=== PATIENT | male | born 1935 | race African-American/Black ===

== ENCOUNTER → 2019-04-24 | Outpatient (CLI) | payer MEDICARE, OTHER ==
[~2019-04-24] MED LIST: AMINOCAPROIC ACID PO; ATEN50TA PO; HYDR12.54 PO; POTA-9 PO; SOLI5TAB PO; TAMS-11 PO
[2019-04-24 10:52] LABS: BASOPHILS % 0.7 % (0.0-2.0); EOSINOPHILS % 4.5 % (0.0-5.0); HEMOGLOBIN. 11.6 g/dL (14.0-18.0); LYMPHOCYTES % 32.4 % (20.0-50.0); MEAN CORPUSCULAR HEMOGLOBIN 27.9 pg (28.0-32.0); MEAN CORPUSCULAR VOLUME 84.4 fL (80.0-94.0); MEAN PLATELET VOLUME 10.2 fl (7.4-10.4); MONOCYTES % 9.2 % (2.0-8.0); NEUTROPHILS % 53.2 % (40.0-76.0); PLATELET 157 x1000/uL (130-400); RED BLOOD CELL COUNT 4.15 mill/uL (4.7-6.1); RED CELL DISTRIBUTION WIDTH 15.5 % (11.6-14.6)
[2019-04-24 11:00] LABS: PARTIAL THROMBOPLASTIN TIME 29.2 sec (23.4-31.0); PROTHROMBIN TIME 10.6 sec (9.6-11.0)
== END | disposition home or self-care (01) ==
LOC: LAB 10:22
PROVIDERS: ATTEND Urology
DX: N13.30 Unspecified hydronephrosis (principal); I10 Essential (primary) hypertension; Z86.2 Personal history of diseases of the blood and blood-forming organs and certain disorders involving the immune mechanism
CPT/HCPCS: 36415; 80048

== ENCOUNTER 2019-04-25 20:42 | Emergency (ER) | payer MEDICARE, OTHER ==
[~2019-04-25] VITALS: Ht 177.8 cm; Wt 74.0 kg
[~2019-04-25 20:42] MED LIST changes: -CEFAZOLIN 1000MG PREMIX 50 ML IV ONE; -FENTANYL CITRATE/PF 50MCG/ML 2ML VIAL IV SCH; -FENTANYL CITRATE/PF 50MCG/ML 2ML VIAL ONE; -IOHEXOL-300 100 ML BOTTLE ONE; -LIDOCAINE HCL 1% 20ML VIAL (Pyxis) INJ ONE; -SODIUM BICARBONATE 4% (2.4MEQ) 5ML VIAL IV ONE
[2019-04-26] VITALS: BP 154/79
== END 2019-04-26 00:50 | disposition home or self-care (01) ==
LOC: ER 20:42
DX: T83.032A Leakage of nephrostomy catheter, initial encounter (principal); N40.0 Benign prostatic hyperplasia without lower urinary tract symptoms; I10 Essential (primary) hypertension; Y82.8 Other medical devices associated with adverse incidents; Y92.9 Unspecified place or not applicable
CPT/HCPCS: 99283

== ENCOUNTER → 2019-04-25 | Day surgery (SDC) | payer MEDICARE, OTHER ==
[~2019-04-25] VITALS: Ht 177.8 cm; Wt 73.5 kg
[2019-04-25] VITALS (17 sets, daily range): BP systolic 144–171; BP diastolic 83–94
[~2019-04-25] MED LIST changes: +CEFAZOLIN 1000MG PREMIX 50 ML IV ONE; +FENTANYL CITRATE/PF 50MCG/ML 2ML VIAL IV SCH; +FENTANYL CITRATE/PF 50MCG/ML 2ML VIAL ONE; +IOHEXOL-300 100 ML BOTTLE ONE; +LIDOCAINE HCL 1% 20ML VIAL (Pyxis) INJ ONE; +SODIUM BICARBONATE 4% (2.4MEQ) 5ML VIAL IV ONE
== END | disposition home or self-care (01) ==
LOC: RADANGIO 08:11
PROVIDERS: ATTEND Urology
DX: C61 Malignant neoplasm of prostate (principal); N13.39 Other hydronephrosis; I10 Essential (primary) hypertension; Z79.899 Other long term (current) drug therapy
CPT/HCPCS: 50693; 99152; 99153; C1725; C1729; C1769; C2625; J0690; J3010; J3490; J7040; Q9967; 74425; G0500

== ENCOUNTER → 2019-05-09 | Outpatient (CLI) | payer MEDICARE, OTHER ==
[~2019-05-09] MED LIST changes: +IOHEXOL-300 50 ML BOTTLE IV ONE
== END | disposition home or self-care (01) ==
LOC: ANGIO 08:33
PROVIDERS: ATTEND Urology
DX: N13.39 Other hydronephrosis (principal); Z93.6 Other artificial openings of urinary tract status; Z79.899 Other long term (current) drug therapy
CPT/HCPCS: 50431; Q9967; 74425; 99283; A4315

== ENCOUNTER → 2019-12-19 | Outpatient (CLI) | payer MEDICARE, OTHER ==
[~2019-12-19] MED LIST changes: -IOHEXOL-300 50 ML BOTTLE IV ONE
== END | disposition home or self-care (01) ==
LOC: LAB 13:44
PROVIDERS: ATTEND Urology
DX: Z01.818 Encounter for other preprocedural examination (principal); Z11.59 Encounter for screening for other viral diseases
CPT/HCPCS: C9803; U0003

== ENCOUNTER 2019-12-23 06:05 | Inpatient (IN) | payer MEDICARE, OTHER ==
[~2019-12-23] VITALS: Ht 177.8 cm; Wt 63.5 kg
[~2019-12-23 06:05] MED LIST changes: +LACTATED RINGERS 1,000 ML IV SCH
[2019-12-23] MEDS ORDERED: GENTAMICIN SULF 40MG/ML 2ML VIAL ONE (07:38)
[2019-12-23] MEDS ORDERED: GLYCOPYRROLATE 0.2 MG/ML 2ML VIAL ONE (08:15)
[2019-12-23] MEDS ORDERED: HYDROMORPHONE HCL/PF 2MG/ML (OR) ONE (08:24)
[2019-12-23] MEDS ORDERED: LABETALOL 5MG/ML SYR 20 MG/4 ML SYRINGE IV PRN (08:45)
[2019-12-23] MEDS ORDERED: MEPERIDINE HCL/PF 25MG/ML CPJ IV PRN (08:45)
[2019-12-23] MEDS ORDERED: HYDROMORPHONE HCL/PF 2MG/ML CPJ IV PRN (08:45)
[2019-12-23] MEDS ORDERED: ONDANSETRON HCL 4MG/2ML INJ IV PRN (08:45)
[2019-12-23] MEDS ORDERED: DOCU-155 PO (09:50)
[2019-12-23] MEDS ORDERED: CHOL200077 PO (09:50)
[2019-12-23] MEDS ORDERED: OXYC10TA85 PO (09:50)
[2019-12-23] MEDS ORDERED: METO25TA3 PO (09:50)
[2019-12-23] MEDS ORDERED: MEGE40TA5 PO (09:50)
[2019-12-23] MEDS ORDERED: FERR-71 PO (09:50)
[2019-12-23] MEDS ORDERED: ENZA40CA PO (09:50)
[2019-12-23] MEDS ORDERED: NON FORMULARY PATIENT HOME MED XX SCH (13:00)
[2019-12-23] MEDS ORDERED: ACETAMINOPHEN 500MG TABLET PO PRN (13:15)
[2019-12-23 16:00] VITALS: BP 136/67
[2019-12-23 17:51] VITALS: BP 136/67
[2019-12-23 20:00] VITALS: BP 120/69
[2019-12-23] MEDS: MEGESTROL ACETATE 40MG TABLET PO SCH (21:27)
[2019-12-23] MEDS: METOPROLOL TARTRATE 25MG TABLET PO SCH (21:28)
[2019-12-24] VITALS: BP 121/69
[2019-12-24 04:00] VITALS: BP 128/72
[2019-12-24] MEDS ORDERED: FERROUS SULFATE 325MG TABLET PO SCH (07:50)
[2019-12-24 08:00] VITALS: BP 130/67
[2019-12-24] MEDS: METOPROLOL TARTRATE 25MG TABLET PO SCH (08:38)
[2019-12-24] MEDS: MEGESTROL ACETATE 40MG TABLET PO SCH (08:38)
[2019-12-24] MEDS ORDERED: METOPROLOL TARTRATE 25MG TABLET PO SCH (09:00)
[2019-12-24] MEDS ORDERED: XTANDI 40 MG PO SCH (09:00)
[2019-12-24] MEDS ORDERED: DOCUSATE SODIUM 100MG CAPSULE PO SCH (09:00)
[2019-12-24 09:57] VITALS: BP 130/67
== END 2019-12-24 10:50 | disposition home or self-care (01) | DRG 723 ==
LOC: OR 06:05 → 6EST 17:19
PROVIDERS: ADMIT Urology; ATTEND Urology
PROC: 0T7D8ZZ Dilation of Urethra, Via Natural or Artificial Opening Endoscopic (ICD-10-PCS; principal; 2019-12-23)
PROC: 0TP98DZ Removal of Intraluminal Device from Ureter, Via Natural or Artificial Opening Endoscopic (ICD-10-PCS; 2019-12-23)
DX: C61 Malignant neoplasm of prostate (principal); N13.30 Unspecified hydronephrosis; N32.0 Bladder-neck obstruction; N35.919 Unspecified urethral stricture, male, unspecified site; R32 Unspecified urinary incontinence
CPT/HCPCS: 74018; 76000; 88300; C1769; C2617; J1170; J1580; J3490